=== PATIENT | female | born 1995 | race Caucasian/White ===

== ENCOUNTER 2019-05-20 19:23 | Emergency (ER) | payer OTHER ==
[2019-05-20 19:47] VITALS: TEMP 98.5; BMI 19.3
--- NOTE | 2019-05-20 20:14 | PDOC ---
*Physical Exam - Vital Signs Last Vital Signs Temp Pulse Resp BP Pulse Ox 98.5 F 75 19 103/50 L 97 05/20/19 19:44 05/20/19 19:44 05/20/19 19:44 05/20/19 19:44 05/20/19 19:44 Medical Decision Making - Medical Decision Making 05/20/19 20:14 Patient seen by the advanced practice provider under my direct supervision. Ancillary testing reviewed as necessary. I agree with plan as outlined by the advanced practice provider. Discharge - Discharge Information Problems reviewed: Yes Clinical Impression/Diagnosis: Musculoskeletal back pain Condition: Stable Disposition: HOME - Additional Discharge Information Prescriptions: Cyclobenzaprine HCl [Flexeril -] 10 mg PO HS PRN #7 tablet PRN Reason: Muscle Spasms Ibuprofen 600 mg PO QID PRN #20 tablet PRN Reason: Back Pain - Follow up/Referral Referrals: Markell Chisholm MD [Primary Care Provider] - Call tomorrow - Patient Discharge Instructions Patient Printed Discharge Instructions: Low Back Pain Additional Instructions: Do light stretches Apply ice to the area for the first 24 hours. Then alternate with ice and heat after. Take ibuprofen every 6 hours as needed for pain. Take Flexeril as prescribed for muscle spasm. Flexeril can make you sleepy, do not drive or operate heavy machinery after taking the medication. Follow-up with an orthopedic doctor if symptoms persist. A referral was given to you today. Return to the emergency room for any worsening symptoms. - Post Discharge Activity Work/Back to School Note: Back to Work, Back to School
--- NOTE | 2019-05-20 20:18 | PDOC ---
History of Present Illness - General Chief Complaint: Back Pain Stated Complaint: BACK PAIN Time Seen by Provider: 05/20/19 20:04 History Source: Patient - History of Present Illness Initial Comments: 05/20/19 20:19 24 year old female with lower back on and off x 3 months. reports that symptoms started with right hip pain radiating down right leg since yesterday which the pain has resolved. patient reports mid back pain worse with movement. patient reports that she sleeps curled up unsure if " slept wrong" denies heavy lifting , recent gym, trauma/ injury. Denies numbness or tingling to the lower extremity , denies incontinence of bowel or urine. PMHX: none LMP: 03/201905/20/19 20:31 05/20/19 20:32 Past History - Past Medical History Allergies/Adverse Reactions: Allergies Allergy/AdvReac Type Severity Reaction Status Date / Time No Known Allergies Allergy Verified 06/21/14 15:34 Home Medications: Ambulatory Orders Ibuprofen [Motrin] 800 mg PO TID #60 tablet 06/21/14 Cyclobenzaprine HCl [Flexeril -] 10 mg PO HS PRN #7 tablet 05/20/19 Ibuprofen 600 mg PO QID PRN #20 tablet 05/20/19 COPD: No - Surgical History Abdominal Surgery: Yes (INTESTINAL BLOCKAGE) - Immunization History Immunization Up to Date: Yes - Psycho Social/Smoking Cessation Hx Smoking Status: No Smoking History: Never smoked Number of Cigarettes Smoked Daily: 0 Hx Alcohol Use: No Drug/Substance Use Hx: No Substance Use Type: None Review of Systems - Review of Systems Able to Perform ROS?: Yes Is the patient limited Slovenian proficient: No Constitutional: No: Symptoms Reported, See HPI, Chills, Diaphoresis, Fever, Loss of Appetite, Malaise, Night Sweats, Weakness, Weight Stable, Unintentional Wgt. Loss, Unexplained wgt Loss, Other Musculoskeletal: Yes: Back Pain *Physical Exam - Vital Signs Last Vital Signs Temp Pulse Resp BP Pulse Ox 98.5 F 75 19 103/50 L 97 05/20/19 19:44 05/20/19 19:44 05/20/19 19:44 05/20/19 19:44 05/20/19 19:44 - Physical Exam General Appearance: Yes: Appropriately Dressed Musculoskeletal: positive: Normal Inspection, Muscle Spasm (paraspinal area lumbar area pain worse with movement). negative: Vertebral Tenderness Extremity: positive: Normal Capillary Refill Integumentary: positive: Normal Color, Dry, Warm Neurologic: positive: Fully Oriented, Alert ED Progress Note - Progress Note Progress Note: 05/21/19 04:17 Musculoskeletal back pain P: NSaids muscle relaxant Discharge - Discharge Information Problems reviewed: Yes Clinical Impression/Diagnosis: Musculoskeletal back pain Condition: Stable Disposition: HOME - Additional Discharge Information Prescriptions: Cyclobenzaprine HCl [Flexeril -] 10 mg PO HS PRN #7 tablet PRN Reason: Muscle Spasms Ibuprofen 600 mg PO QID PRN #20 tablet PRN Reason: Back Pain - Follow up/Referral Referrals: Markell Chisholm MD [Primary Care Provider] - Call tomorrow - Patient Discharge Instructions Patient Printed Discharge Instructions: Low Back Pain Additional Instructions: Do light stretches Apply ice to the area for the first 24 hours. Then alternate with ice and heat after. Take ibuprofen every 6 hours as needed for pain. Take Flexeril as prescribed for muscle spasm. Flexeril can make you sleepy, do not drive or operate heavy machinery after taking the medication. Follow-up with an orthopedic doctor if symptoms persist. A referral was given to you today. Return to the emergency room for any worsening symptoms. - Post Discharge Activity Work/Back to School Note: Back to Work, Back to School
[2019-05-20] MEDS ORDERED: KETOROLAC TROMETHAMINE 30 MG/1 ML VIAL IM ONE (20:24)
[2019-05-20] MEDS ORDERED: diazePAM 5 MG TABLET PO ONE (20:24)
[2019-05-20] MEDS ORDERED: KETOROLAC TROMETHAMINE 30 MG/1 ML VIAL ONE (20:32)
[2019-05-20] MEDS ORDERED: diazePAM 5 MG TABLET ONE (20:32)
[2019-05-20 21:24] LABS: PH,URINE 6.5 (5.0-8.0); URINE APPEARANCE CLEAR; URINE BILIRUBIN NEGATIVE (NEGATIVE); URINE COLOR YELLOW; URINE GLUCOSE (UA) NEGATIVE (NEGATIVE); URINE KETONE NEGATIVE (NEGATIVE); URINE LEUK ESTERASE NEGATIVE (NEGATIVE); URINE NITRITE NEGATIVE (NEGATIVE); URINE PROTEIN NEGATIVE (NEGATIVE); URINE UROBILINOGEN 0.2 mg/dL (0.2-1.0)
[2019-05-20 22:10] VITALS: BP 109/53; PULSE 71
== END 2019-05-20 22:00 | disposition home or self-care (01) ==
LOC: JER 19:23
PROC: 3E0233Z Introduction of Anti-inflammatory into Muscle, Percutaneous Approach (ICD-10-PCS; principal; 2019-05-20)
DX: M62.830 Muscle spasm of back (principal)
CPT/HCPCS: 81003; 84703; 96372; 99282-25